=== PATIENT | female | born 1945 | race Caucasian/White ===

== ENCOUNTER 2019-06-02 13:10 | Inpatient (IN) | payer MEDICARE, OTHER ==
[~2019-06-02] VITALS: Ht 152.4 cm; Wt 76.7 kg
[2019-07-22] VITALS (11 sets, daily range): BP systolic 91–118; BP diastolic 43–70; PULSE 60–69; TEMP 97.3–97.8
[2019-07-22] MEDS ORDERED: KLONOPIN 0.5MG0.5 MG PO (05:45)
[2019-07-22] MEDS ORDERED: KLOR-CON 1010 MEQ PO (05:49)
[2019-07-22] MEDS ORDERED: MAGNESIUM200 MG PO (05:51)
--- NOTE | 2019-07-22 10:40 | NUR ---
arrived on unit per bed from PACU, awake and alert but very sleepy, arouses when her name is called, IV infusing and placed on pump at 125ml/hr, O2 on at 3L/NC and O2 sat 100%, aquacel dressing to right shoulder CD&I and ice in place, abduction sling to right arm, SCDS on bilaterally, denies needs at this time
--- NOTE | 2019-07-22 11:04 | NUR ---
PATIENT AROUSES TO NAME BUT STILL DROWSY AND UNABLE TO PERFORM COUGHING/DEEP BREATHING ON COMMAND AT THIS TIME. REFUSES OFFER OF ORAL FLUIDS CURRENTLY. NO FAMILY PRESENT IN ROOM AT THIS TIME.
--- NOTE | 2019-07-22 11:16 | NUR ---
, ALVIN, IN ROOM. PATIENT RESTING WITH EYES CLOSE, DOES NOT AWAKEN WITH STAFF ENTERING ROOM. PLACED WATER AT BEDSIDE, NO OTHER PATIENT RELATED NEEDS REPORTED AT THIS TIME.
--- NOTE | 2019-07-22 11:22 | NUR ---
PATIENT AROUSES TO NAME, NEEDS FREQUENT PROMPTING/CUES TO FOLLOW COMMANDS DUE TO DROWSINESS, SPEAKS CLEARLY. NO ORAL FLUIDS TAKEN DUE TO DROWSINESS. AT BEDSIDE. NO NEEDS REPORTED AT THIS TIME.
--- NOTE | 2019-07-22 11:37 | NUR ---
FULL ASSESSMENT PERFORMED, SEE INTERVENTION FOR FURTHER INFORMATION. PATIENT AROUSES TO NAME, NO ORAL FLUIDS TAKEN DUE TO CONTINUED DROWSINESS. AT BEDSIDE. NO OTHER NEEDS REPORTED AT THIS TIME.
--- NOTE | 2019-07-22 12:06 | NUR ---
PATIENT CONTINUES TO BE DROWSY, REQUIRES FREQUENT PROMPTING TO FOLLOW BUT ABLE TO FOLLOW COMMANDS. TOLERATED SIP OF WATER WITH NO OTHER NEEDS REPORTED AT THIS TIME.
--- NOTE | 2019-07-22 12:35 | NUR ---
CONTINUES WITH DROWSINESS, AROUSES WITH NAME CALLED, FOLLOW COMMANDS WITH FREQUENT CUES. SWALLOWS SMALL SIPS WATER, COUGH NONPRODUCTIVE. NO OTHER NEEDS REPORTED AT THIS TIME. AT BEDSIDE
--- NOTE | 2019-07-22 13:12 | NUR ---
DROWSY, AWAKENS WITH NAME CALLED AND FOLLOWS COMMANDS WITH FREQUENT PROMPTING. REPOSITIONED WITH MOD ASSIST TO LEFT SIDE WITH NO COMPLAINTS OF RIGHT SHOULDER DISCOMFORT. TOLERATING SMALL SIPS OF WATER CURRENTLY.
--- NOTE | 2019-07-22 13:35 | NUR ---
SLEEPING UPON ENTERING ROOM, AROUSES WITH NAME CALLED, FOLLOWS COMMANDS WITH REPEATED PROMPTING. TOLERATING SIPS WATER, GRUBBS CONTINUES WITH CLEAR YELLOW URINE. RIGHT SHOULDER DRESSING CLEAN/DRY/INTACT. NONPRODUCTIVE COUGH ON COMMAND. AT BEDSIDE.
--- NOTE | 2019-07-22 14:40 | NUR ---
Equipment Worker met with the patient and her , Russ (ph#[phone]) to discuss discharge planning. Patient's answered most of the questions as patient appeared to be falling asleep. Patient lives in [place] with her , Russ. Patient receives primary care services from JOSE FRANCISCO Cordero at the [facility]. Patient obtains her medications with no issue from the [facility] in [place]. Russ reports patient was independent with ADL's prior to surgery. 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 Russ provided SW copy of DPO[facility] and JENNIE placed a copy in patient's chart.
--- NOTE | 2019-07-22 15:01 | NUR ---
DROWSY, AROUSES WITH NAME CALLED. TOLERATED JELLO/SIPS WATER. GRUBBS OUTPUT CLEAR YELLOW, REPORTS NO PAIN CURRENTLY, INSTRUCTED TO WIGGLE FINGERS FREQUENTLY AND PERFORM FOOT PUMPS FREQUENTLY TO ASSIST WITH CIRCULATION. ENCOURAGED TO COUGH AND DEEP BREATH FREQUENTLY WHEN AWAKE AND WILL GET IS FROM RT. REPORTS TOUCH SENSATION TO RIGHT HAND FINGERS WHEN ASKED. AT BEDSIDE
--- NOTE | 2019-07-22 16:09 | NUR ---
PATIENT AROUSED WHEN ROOM ENTERED, DENIES ANY NEED FOR PAIN MED AT THIS TIME. GRUBBS CATHETER DRAINING CLEAR YELLOW URINE. REPOSITIONED FROM LEFT SIDE TO BACK, TOLERATED MOVEMENT WELL. DRESSING RIGHT SHOULDER CLEAN/DRY/INTACT. PILLOW TO BACK OF RIGHT ARM CONTINUES WITH ABD SLING TO RIGHT ARM IN PLACE. NO COMPLAINTS OF NAUSEA, TOLERATING SIPS OF WATER STILL. NO OTHER NEEDS REPORTED.
--- NOTE | 2019-07-22 17:46 | NUR ---
FOOD TRAY BROUGHT TO PATIENT BY DIETARY, UNABLE TO PREPARE FOOD TO EAT, STAFF ASSISTED WITH CUTTING OF FOOD ITEMS, PLACEMENT OF FOOD TRAY ITEMS FOR EASIER REACH WITH PATIENT FEEDING SELF WITH NO COMPLAINTS AT THIS TIME.
--- NOTE | 2019-07-22 18:29 | NUR ---
PATIENT AWAKE/ALERT, ANSWERS QUESTIONS APPROPRIATELY AND SPEAKS CLEARLY. REPORTING TINGLING TO PINKY/RING/THUMB FINGERS TO RIGHT HAND, WIGGLES RIGHT HAND FINGERS ON COMMAND. REFUSED OFFER OF PAIN MEDS. PATIENT VOICED UNDERSTANDING OF COUGH/DEEP BREATHING FREQUENTLY UNTIL IS INSTRUCTED ON INCENTIVE SPIROMETER BY RESP THERAPY. ENCOURAGED FOOT PUMP EXERCISES AND REMINDED WILL HAVE TO CALL FOR HELP FOR OUT OF BED ACTIVITIES FOR NOW. DENIES NAUSEA AT THIS TIME.
--- NOTE | 2019-07-22 18:54 | NUR ---
SHIFT REPORT GIVEN TO CHRISTY SAMS.
--- NOTE | 2019-07-22 19:50 | NUR ---
Patient shoulder has aquacell dressing in place. Ice and abduction sling on at this time. Patient has been utilizing oxycodone for pain management this shift. Patient has a calix at this time and IV to left wrist.
[2019-07-23] VITALS: BP 101/52; PULSE 65; TEMP 97.9
[2019-07-23 03:36] VITALS: BP 123/53; PULSE 66; TEMP 97.8
--- NOTE | 2019-07-23 07:14 | NUR ---
REPORT FROM EBONI ASMS. HAVEN STUDENT VERONICA WORKING WITH PT THIS AM.
[2019-07-23 07:19] VITALS: BP 128/54; PULSE 65; TEMP 98.6
[2019-07-23 12:48] VITALS: BP 105/43; PULSE 64; TEMP 97.8
[2019-07-23] MEDS ORDERED: ASPI325T6 PO (13:13)
[2019-07-23] MEDS ORDERED: NORCO 325 MG-7.1 TAB PO (13:13)
[2019-07-23] MEDS ORDERED: ROXICODONE 55 MG/TAB PO (13:15)
--- NOTE | 2019-07-23 13:46 | NUR ---
Pt has aquacell dressing on right shoulder at this time. Dressing is dry and intact. Pt has abduction sling on. Ice is being used on right shoulder for pain managment. Pts is in room with her. Call light in reach. No complaints at this time. Reported off to Primary nurse Marah SAMS.
--- NOTE | 2019-07-23 14:59 | NUR ---
DISCHARGE INSTRUCTIONS REVIEWED WITH PT AND FAMILY. QUESTIONS ANSWERED AND PT TAKE TO FRONT VIA WHEEL CHAIR BY STAFF
== END 2019-07-23 14:30 | disposition home or self-care (01) | DRG 483 ==
LOC: JCC 07-22 05:14
PROVIDERS: ADMIT Orthopaedic Surgery
PROC: 0LN10ZZ Release Right Shoulder Tendon, Open Approach (ICD-10-PCS; 2019-07-22)
PROC: 0RRJ00Z Replacement of Right Shoulder Joint with Reverse Ball and Socket Synthetic Substitute, Open Approach (ICD-10-PCS; principal; 2019-07-22 07:30)
DX: M75.101 Unspecified rotator cuff tear or rupture of right shoulder, not specified as traumatic (principal); M19.211 Secondary osteoarthritis, right shoulder; D32.9 Benign neoplasm of meninges, unspecified; I10 Essential (primary) hypertension; E66.9 Obesity, unspecified; M06.9 Rheumatoid arthritis, unspecified; M81.0 Age-related osteoporosis without current pathological fracture; G47.33 Obstructive sleep apnea (adult) (pediatric); Z96.643 Presence of artificial hip joint, bilateral; Z98.1 Arthrodesis status; Z87.891 Personal history of nicotine dependence; Z90.710 Acquired absence of both cervix and uterus
CPT/HCPCS: A4314; A4619; C1713; C1776; J0690; J1100; J1885; J2250; J2405; J2704; J3010; J3370; J7120

== ENCOUNTER → 2019-06-02 | Outpatient (CLI) | payer MEDICARE, OTHER ==
[~2019-06-02] MED LIST: ASPIRIN 81M81 MG/TA2 PO; EPA FISH OIL1 SGL PO; FOSAMAX 70MG TA70 MG PO; HCTZ 25MG TAB25 MG PO; KLONOPIN 1MG1 MG PO; LEVOXYL0.125 MG PO; MICRO-K 10 EXT10 MEQ PO; MOBIC15 MG PO; MULTI VITAMINS1 TAB PO; NITROSTAT0.4 MG/TAB SL; PRILOSEC 20MG20 MG PO; PRINIVIL10 MG PO; PROBIOTIC FORMU1 CAP PO; TURMERIC500 MG PO; VITAMIND3 5000 PO; ZOCOR 20MG20 MG PO; ZOLOFT 100MG100 MG PO
== END ==
LOC: COL.RAD 13:21
DX: M54.31 Sciatica, right side (principal); Z96.641 Presence of right artificial hip joint
CPT/HCPCS: J3301